=== PATIENT | male | born 1970 | race African-American/Black ===

== ENCOUNTER 2023-05-19 06:55 | Observation (INO) ==
[2023-05-19] MEDS ORDERED: Lactated Ringers 1000 ml BAG 1,000 ML IV ONE (07:12)
[2023-05-19] MEDS ORDERED: Ondansetron 4 mg VIAL 2 MG/ML 2 ml VIAL IV ONE (07:12)
[2023-05-19 07:25] LABS: ABS Basophils 0.1 10^3/uL (0.0-0.1); ABS Lymphocytes 0.7 10^3/uL (1.0-4.8); ABS Monocytes 0.2 10^3/uL (0.0-1.1); ABS Neutrophils 7.4 10^3/uL (1.5-7.6); Eosinophil % 0.5 %; Hematocrit 44.2 % (38-53); Hemoglobin 14.8 g/dL (13.2-16.3); Lymphocyte % 8.5 %; Mean Corpuscular Hemoglobin 32.3 pg (27-33); Mean Corpuscular Hgb Conc 33.5 g/dL (31-36); Mean Corpuscular Volume 96.6 fL (80-97); Mean Platelet Volume 7.5 fL (7.5-11.2); Platelet Count 245 10^3/uL (150-450); Red Blood Count 4.58 10^6/uL (4.06-5.63); Red Cell Distribution Width 12.5 % (12-17); White Blood Count 8.5 10^3/uL (3.6-10.2)
[2023-05-19 07:40] LABS: INR 0.99 (0.83-1.13)
[2023-05-19 07:50] LABS: Albumin 4.8 g/dL (3.2-5.2); Albumin/Globulin Ratio 1.5 (1-3); C Reactive Protein 1.73 mg/L (<8.01); Calcium 9.8 mg/dL (8.6-10.3); Globulin 3.1 g/dL (2-4); Potassium 3.7 mmol/L (3.5-5.0); Total Bilirubin 0.7 mg/dL (0.2-1.0); Total Protein 7.9 g/dL (6.4-8.9); eGFR CKD-EPI 91.7 (>60)
[2023-05-19] MEDS ORDERED: Al Hydrox/Mg Hydrox/Simet LIQ 30 ML UDC PO ONE (09:31)
[2023-05-19] MEDS ORDERED: Famotidine IV 10 MG/ML 2 ml VIAL (20 mg) IV SLOW PU ONE (09:31)
[2023-05-19 09:37] LABS: Urine Appearance Clear; Urine Bilirubin Negative (Negative); Urine Blood Negative (Negative); Urine Color Yellow; Urine Glucose Negative (Negative); Urine Ketones Trace (Negative); Urine Nitrite Negative (Negative); Urine Protein 1+(30 mg/dL) (Negative); Urine Specific Gravity 1.025 (1.002-1.030); Urine Urobilinogen Negative (Negative)
[2023-05-19 09:52] LABS: Urine Bacteria Absent (Absent); Urine Red Blood Cell Trace(0-2/hpf) (Absent); Urine White Blood Cell Trace(0-5/hpf) (Absent)
[2023-05-19] MEDS ORDERED: Iohexol 300 (CONTRAST) 10 ML SDV IV ONE (11:38)
[2023-05-19] MEDS: Enoxaparin 100 MG/ML SYR SUBCUT SCH ×3 (16:59→17:58)
[2023-05-20] MEDS: Enoxaparin 100 MG/ML SYR SUBCUT SCH ×2 (06:19→18:06)
[2023-05-20 06:55] LABS: ABS Basophils 0.1 10^3/uL (0.0-0.1); ABS Lymphocytes 1.5 10^3/uL (1.0-4.8); ABS Monocytes 0.6 10^3/uL (0.0-1.1); ABS Neutrophils 4.2 10^3/uL (1.5-7.6); Eosinophil % 0.7 %; Hematocrit 41.8 % (38-53); Hemoglobin 13.8 g/dL (13.2-16.3); Lymphocyte % 23.6 %; Mean Corpuscular Hemoglobin 31.9 pg (27-33); Mean Corpuscular Volume 96.7 fL (80-97); Mean Platelet Volume 7.8 fL (7.5-11.2); Nucleated Red Blood Cells % 0.1 %/100WBC (0.0-0.8); Platelet Count 214 10^3/uL (150-450); Red Blood Count 4.32 10^6/uL (4.06-5.63); Red Cell Distribution Width 12.3 % (12-17); White Blood Count 6.4 10^3/uL (3.6-10.2)
[2023-05-20 07:14] LABS: Albumin 3.9 g/dL (3.2-5.2); Albumin/Globulin Ratio 1.6 (1-3); Calcium 8.9 mg/dL (8.6-10.3); Creatinine, Serum 1.1 mg/dL (0.67-1.17); Globulin 2.5 g/dL (2-4); Potassium 3.9 mmol/L (3.5-5.0); Total Bilirubin 0.9 mg/dL (0.2-1.0); Total Protein 6.4 g/dL (6.4-8.9); eGFR CKD-EPI 81.8 (>60)
[2023-05-20 14:45] VITALS: BP 122/74
[2023-05-22 16:12] LABS: Free Protein S Antigen 73 % (65 - 160)
[2023-05-27 12:52] LABS: Protein C Antigen, Plasma 91 % (72-160)
== END 2023-05-20 13:20 | disposition home or self-care (01) ==
LOC: ED 06:55 → EDHOLD 06:55 → MED 15:12
PROVIDERS: ADMIT Hospitalist; ATTEND Hospitalist